=== PATIENT | female | born 1960 | race Caucasian/White ===

== ENCOUNTER 2017-11-20 11:52 | Day surgery (SDC) | payer OTHER, SELFPAY ==
[2017-11-10 14:09] VITALS: BMI 26.8
[2017-11-20 13:06] VITALS: BMI 25.9
[2017-11-20 13:19] VITALS: BP 121/74; PULSE 85; RESP 16; TEMP 36.8; O2SAT 98
[2017-11-20] MEDS: LACTATED RINGERS 1,000 ML 42 ML IV (13:21)
[2017-11-20] MEDS: CEFAZOLIN 2 GM/100 ML FROZ.PIGGY IV (14:15)
--- NOTE | 2017-11-20 14:20 | PM.OP.1 ---
Procedure & Clinicians Procedure: Bunionectomy with double osteotomy, right foot Same procedure as scheduled: Yes Indications: Painful bunion deformity, right foot Surgeon: Immanuel Rosen Click Yes if Unassisted: Yes Anesthesia Type: General and Local Operative Notes Closure Type: primary Specimen(s): none sent Implants & Drains: 2 2.7 Synthes cortical screws; [place] 28 bone staple 8mm x 8mm Blood products transfused: none Procedure in detail: Operation: Patient was taken from the day surgery area back to the OR via gurney after having been given IV antibiotic prophylaxis. She was placed on the OR table in the supine position. General anesthesia was induced by the anesthesiologist, followed by local anesthetic blockade of the forefoot utilizing approximately 12 cc of 50 50 lidocaine. A calf tourniquet was placed however not utilized throughout the case. The foot was then prepped and draped in usual sterile fashion from toe to knee. Procedure bunionectomy with double osteotomy, right foot Attention was directed toward the dorsomedial aspect of the right foot. A curvilinear incision was placed at the level of the 1st MTP joint, just medial to the EHL tendon. Sharp and blunt dissection were utilized throughout the subcutaneous tissue layer taking care to retract all vital structures and cauterize as needed for adequate hemostasis. A dorsal capsulotomy of the 1st MP joint was performed in the 1st metatarsal head delivered by release of the collateral ligaments. A lateral adductor tendon release was then performed without complication. The medial eminence of the bunion was removed with a sagittal saw, taking care to avoid staking of the metatarsal head. Using a K-wire as a osteotomy guide, a through and through long dorsal arm osteotomy was performed of the metatarsal from medial to lateral. The metatarsal bone was noted to be very soft. The capital fragment was then relocated laterally, temporarily pinned, and permanently fixated with 2 2.7 mm cortical bone screws from dorsal to plantar, following standard AO technique. Good compression and bite on both screws was obtained. The overhanging medial margin of bone was removed and smoothed down with a hand rasp. The wound was then copiously irrigated with antibiotic solution. Attention was then directed distally to the proximal phalanx. After carefully dissecting the proximal half free, the vertical K-wire was placed as an apical axis guide for a lateral cortical hinge. The osteotomy was performed and a medially based wedge approximately 2-3 mm in width was removed. The hallux was adducted, correcting the hallux valgus deformity. It was then fixated with the use of a [place] 28 compression staple. Excellent fixation and excellent alignment was achieved. The wound was then again aggressively irrigated with antibiotic solution. Wound closure was then performed in layers, utilizing 3 0, 4 0, and 5 0 Vicryl respectively for the capsule, subcu, and skin. Should be noted before closure of the deep layer that a extensor hallucis longus Z-plasty lengthening was performed, after noting the excessive tautness in that tendon. A postop block of 20 cc 0.5% Marcaine with 2 cc dex phosphate was infiltrated around the surgical site. Steri-Strips were applied. A light gauze compression bandage was then applied. The patient tolerated the procedure and anesthesia without any apparent complications. She left the operating room with vital signs stable and digital perfusion intact. She will be nonweightbearing x1 week protected in a BK removable boot which will be applied in the recovery room. She will be seen for follow-up appointment in the [place] office next week.
--- NOTE | 2017-11-20 14:23 | P.OP_ITS ---
Procedure & Clinicians Procedure: Bunionectomy with double osteotomy, right foot Same procedure as scheduled: Yes Indications: Painful bunion deformity, right foot Surgeon: Immanuel Rosen Click Yes if Unassisted: Yes Anesthesia Type: General and Local Operative Notes Closure Type: primary Specimen(s): none sent Implants & Drains: 2 2.7 Synthes cortical screws; [place] 28 bone staple 8mm x 8mm Blood products transfused: none Procedure in detail: Operation: Patient was taken from the day surgery area back to the OR via gurney after having been given IV antibiotic prophylaxis. She was placed on the OR table in the supine position. General anesthesia was induced by the anesthesiologist, followed by local anesthetic blockade of the forefoot utilizing approximately 12 cc of 50 50 lidocaine. A calf tourniquet was placed however not utilized throughout the case. The foot was then prepped and draped in usual sterile fashion from toe to knee. Procedure bunionectomy with double osteotomy, right foot Attention was directed toward the dorsomedial aspect of the right foot. A curvilinear incision was placed at the level of the 1st MTP joint, just medial to the EHL tendon. Sharp and blunt dissection were utilized throughout the subcutaneous tissue layer taking care to retract all vital structures and cauterize as needed for adequate hemostasis. A dorsal capsulotomy of the 1st MP joint was performed in the 1st metatarsal head delivered by release of the collateral ligaments. A lateral adductor tendon release was then performed without complication. The medial eminence of the bunion was removed with a sagittal saw, taking care to avoid staking of the metatarsal head. Using a K- wire as a osteotomy guide, a through and through long dorsal arm osteotomy was performed of the metatarsal from medial to lateral. The metatarsal bone was noted to be very soft. The capital fragment was then relocated laterally, temporarily pinned, and permanently fixated with 2 2.7 mm cortical bone screws from dorsal to plantar, following standard AO technique. Good compression and bite on both screws was obtained. The overhanging medial margin of bone was removed and smoothed down with a hand rasp. The wound was then copiously irrigated with antibiotic solution. Attention was then directed distally to the proximal phalanx. After carefully dissecting the proximal half free, the vertical K-wire was placed as an apical axis guide for a lateral cortical hinge. The osteotomy was performed and a medially based wedge approximately 2- 3 mm in width was removed. The hallux was adducted, correcting the hallux valgus deformity. It was then fixated with the use of a paragon 28 compression staple. Excellent fixation and excellent alignment was achieved. The wound was then again aggressively irrigated with antibiotic solution. Wound closure was then performed in layers, utilizing 3 0, 4 0, and 5 0 Vicryl respectively for the capsule, subcu, and skin. Should be noted before closure of the deep layer that a extensor hallucis longus Z-plasty lengthening was performed, after noting the excessive tautness in that tendon. A postop block of 20 cc 0.5% Marcaine with 2 cc dex phosphate was infiltrated around the surgical site. Steri-Strips were applied. A light gauze compression bandage was then applied. The patient tolerated the procedure and anesthesia without any apparent complications. She left the operating room with vital signs stable and digital perfusion intact. She will be nonweightbearing x1 week protected in a BK removable boot which will be applied in the recovery room. She will be seen for follow-up appointment in the [place] office next week.
--- NOTE | 2017-11-20 14:46 | SUR.OPER ---
Supine on padded OR bed, head on pillow, arms secured on padded arm boards at <90 degrees abduction, legs uncrossed, safety belt at thigh, tape over blanket over lower legs.
[2017-11-20] MEDS: DEXAMETHASONE 4 MG/ML VIAL IV (14:53)
[2017-11-20] MEDS: BUPIVACAINE 0.5% (PF) VIAL 30 ML INJ (14:53)
[2017-11-20] MEDS: POVIDONE-IODINE 59 ML BOTTLE TOP (14:54)
[2017-11-20 16:02] VITALS: BP 119/67; BP 120/74; PULSE 102; PULSE 98; RESP 14; RESP 16; TEMP 36.6; O2SAT 97; O2SAT 98
[2017-11-20 16:07] VITALS: BP 116/71; PULSE 96; RESP 10; TEMP 36.6; O2SAT 98
[2017-11-20 16:30] VITALS: BP 116/76; PULSE 91; RESP 16; TEMP 36.9; O2SAT 94
--- NOTE | 2017-11-20 16:54 | SUR.PHASEII ---
On discharge sudden onset of moist skin, but denied nausea. No pouring sweat, just a bit moist. reinforced slow approach to any activity. Applied moist cloth with some releif voiced. Desired discharge home and this was donme.
== END 2017-11-20 16:36 | disposition home or self-care (01) ==
PROVIDERS: Family Provider Physician Assistant Medical; Visit Provider Podiatrist
PROC: (CPT 28299; principal; 2017-11-20 14:00)
DX: M20.11 Hallux valgus (acquired), right foot (principal); J45.909 Unspecified asthma, uncomplicated
CPT/HCPCS: 28299; J0690; J1100; J1170; J2405; J2704; J3010